=== PATIENT | female | born 1995 | race Two or more races ===

== ENCOUNTER 2020-08-03 13:19 | Emergency (ER) | payer OTHER ==
[2020-08-03 13:24] VITALS: BP 108/66
--- NOTE | 2020-08-03 13:50 | ER Document Report ---
ED Medical Screen (RME) - General Chief Complaint: Leg Pain Stated Complaint: RIGHT FOOT PAIN Time Seen by Provider: 08/03/20 13:35 Mode of Arrival: Ambulatory Information source: Patient - HPI Patient complains to provider of: Right leg pain, chest pain shortness of breath Notes: 08/03/20 13:48 Patient with complaints of right leg pain. She states her last 3 days been having some tightness and pain in the right calf and leg. She states that she was on control until about 2 months ago. She denies smoking. She does report recently driving from [place] within the last 3 weeks. She denies a personal history of blood clots, but states that her family has a history of blood clots. He also states that she been having some tightness in her chest some occasional chest pain occasional shortness of breath for the last 3 days. Exam: No distress, nontoxic appearing. Lungs clear and equal throughout. Heart sounds normal. Mild tenderness to palpation to the right calf with no obvious swelling or erythema. Normal pulse. Compartments soft. An initial examination was made on the patient as part of the triage process, and it was determined a more comprehensive evaluation was necessary. Initial orders were placed and patient was transferred to another provider in the ED who assumed care and finished evaluation and plan. - Related Data Allergies/Adverse Reactions: Penicillins Allergy (Verified 08/03/20 13:32) Past Medical History - Social History Chew tobacco use (# tins/day): No Frequency of alcohol use: Occasional Drug Abuse: None Physical Exam - Vital signs Vitals: Temp Pulse Resp BP Pulse Ox 98.2 F 83 18 108/66 99 08/03/20 13:23 08/03/20 13:23 08/03/20 13:23 08/03/20 13:23 08/03/20 13:23 Course - Vital Signs Vital signs: Temp Pulse Resp BP Pulse Ox 98.2 F 83 18 108/66 99 08/03/20 13:23 08/03/20 13:23 08/03/20 13:23 08/03/20 13:23 08/03/20 13:23
--- NOTE | 2020-08-03 14:26 | RADIOLOGY REPORT (SQ) ---
EXAM DESCRIPTION: CHEST 2 VIEWS IMAGES COMPLETED DATE/TIME: 08/03/2020 2:15 pm REASON FOR STUDY: CP, SOB COMPARISON: None. EXAM PARAMETERS: NUMBER OF VIEWS: two views TECHNIQUE: Digital Frontal and Lateral radiographic views of the chest acquired. RADIATION DOSE: NA LIMITATIONS: none FINDINGS: LUNGS AND PLEURA: No opacities, masses or pneumothorax. No pleural effusion. MEDIASTINUM AND HILAR STRUCTURES: No masses or contour abnormalities. HEART AND VASCULAR STRUCTURES: Heart normal size. No evidence for failure. BONES: No acute findings. HARDWARE: None in the chest. OTHER: No other significant finding. IMPRESSION: NO ACUTE RADIOGRAPHIC FINDING IN THE CHEST. TECHNICAL DOCUMENTATION: JOB ID: [id number] 2010 [employer]- All Rights Reserved Reading location - IP/workstation name: [email or web address]
[2020-08-03 14:40] LABS: ABSOLUTE LYMPHOCYTES (AUTO) 2.3 10^3/uL (0.5-4.7); ABSOLUTE MONOCYTES (AUTO) 0.5 10^3/uL (0.1-1.4); ABSOLUTE NEUT (AUTO) 4.7 10^3/uL (1.7-8.2); BASOPHILS % (AUTO) 0.5 % (0-2); EOSINOPHILS % (AUTO) 0.4 % (0-6); HEMATOCRIT 38.4 % (36.0-47.0); HEMOGLOBIN 13.7 g/dL (12.0-15.5); LYMPHOCYTES % (AUTO) 29.9 % (13-45); MEAN CORPUSCULAR HEMOGLOBIN 32.1 pg (27.0-33.4); MEAN CORPUSCULAR HGB CONC 35.7 g/dL (32.0-36.0); MEAN CORPUSCULAR VOLUME 90 fl (80-97); MONOCYTES % (AUTO) 6.8 % (3-13); PLATELET COUNT 225 10^3/uL (150-450); RED BLOOD COUNT 4.27 10^6/uL (3.72-5.28); SEGMENTED NEUTROPHILS % (AUTO) 62.4 % (42-78); TOTAL CELLS COUNTED % (AUTO) 100 %; WHITE BLOOD COUNT 7.6 10^3/uL (4.0-10.5)
[2020-08-03 14:49] LABS: ALBUMIN 4.5 g/dL (3.5-5.0); ALKALINE PHOSPHATASE 62 U/L (38-126); ANION GAP 9 (5-19); ASPARTATE AMINO TRANSFERASE 25 U/L (14-36); BILIRUBIN,DIRECT 0.2 mg/dL (0.0-0.4); BILIRUBIN,TOTAL 0.5 mg/dL (0.2-1.3); BLOOD UREA NITROGEN 12 mg/dL (7-20); CARBON DIOXIDE 25 mmol/L (22-30); CHLORIDE 104 mmol/L (98-107); GLUCOSE 100 mg/dL (75-110); POTASSIUM 3.9 mmol/L (3.6-5.0); TOTAL PROTEIN 7.5 g/dL (6.3-8.2)
--- NOTE | 2020-08-03 16:00 | ER Document Report ---
ED Extremity Problem, Lower - General Chief Complaint: Leg Pain Stated Complaint: RIGHT FOOT PAIN Time Seen by Provider: 08/03/20 13:35 Mode of Arrival: Ambulatory Information source: Patient - HPI Patient complains to provider of: Pain Notes: Patient here with complaints of some right lower leg pain. States this pain started Started 3 days ago. She reports having some tightness in her right calf and leg and now reports pain from her right buttocks all the way down her right leg. No swelling. She not currently on control but states she stopped taking control but 2 months ago. She denies smoking. She does report recently driving from [place] approximately 3 weeks ago. She denies any personal history of blood clots but has family members that have had blood clots in the past. She also states that she has had some intermittent chest tightness and occasional shortness of breath for the last 3 days. She denies any chest pa in or shortness of breath currently. She denies any abdominal pain. No nausea, vomiting, diarrhea. No fever. No redness. No rash. Pain in her leg is constant, mild to moderate, worse with walking, nothing in particular makes it better. She does complain of some mild low back pain as well. She denies any bowel or bladder dysfunction. She denies IV drug use. She denies dysuria or hematuria. No other complaints at this time. - Related Data Allergies/Adverse Reactions: Penicillins Allergy (Verified 08/03/20 13:32) Past Medical History - General Information source: Patient - Social History Smoking Status: Never Smoker Chew tobacco use (# tins/day): No Frequency of alcohol use: Occasional Drug Abuse: None Family History: Reviewed & Not Pertinent Review of Systems - Review of Systems -: Yes All other systems reviewed and negative Physical Exam - Vital signs Vitals: Temp Pulse Resp BP Pulse Ox 98.2 F 83 18 108/66 99 08/03/20 13:23 08/03/20 13:23 08/03/20 13:23 08/03/20 13:23 08/03/20 13:23 - Notes Notes: GENERAL: alert, cooperative, nontoxic, no distress. HEAD: normocephalic, atraumatic EYES: conjunctiva pink without discharge, no external redness or swelling. EARS: no external swelling, no external redness NOSE: atraumatic, no external swelling MOUTH/THROAT: mucous membranes moist and pink, posterior pharynx without erythema, swelling, exudate. No trismus or drooling. NECK: soft, supple, full range of motion, no meningismus. CHEST: no distress, lungs clear and equal throughout. No wheezing, rales, rhonchi. CARDIAC: regular rate and rhythm, no murmur, normal capillary refill, normal pulses. No peripheral edema noted. ABDOMEN: soft, nontender, no pusatile mass. BACK: No CVA tenderness. Nontender to palpation. Mild tenderness to the right sciatic notch. EXTREMITIES: full range of motion of all extremities. No redness, no swelling. NEURO: alert and oriented A&O x 3, no focal deficits, full range of motion of all extremities. 5 out of 5 flexion and extension of the lower extremities bilaterally. Patellar and Achilles deep tendon reflexes are +2 bilaterally. Normal sensation with no saddle anesthesia. Patient can dorsiflex the great toes bilaterally. PYSCH: appropriate mood, affect. Patient is cooperative. SKIN: pink, warm, dry, no rash. Course - Re-evaluation Re-evalutation: 08/03/20 16:00 Patient is nontoxic-appearing with stable vitals. Patient's resting comfortably at this time. I have gone over results with the patient. Patient here with complaints of some right leg pain. She was concerned she may have a blood clot in the leg since she recently drove from [place] and has a family history of blood clots so she wanted to be evaluated. DVT study is negative. Patient symptoms are consistent with some lumbar radicular pain. She has no swelling in the leg, no redness and no signs of infection. Neurovascular she is intact. She is also complained of some intermittent chest pain and shortness of breath. She denies any chest pain or shortness of breath currently. Heart score is 1. EKG is normal. Troponin is negative. Remainder of her labs are all unremarkable for any significant abnormalities. Chest x-ray is negative as well. Patient is PERC rule negative for pulmonary embolism and pulmonary embolism is very unlikely in this patient. Symptoms of her chest pain are also very atypical for ACS. With atypical symptoms and a negative work-up and a low heart score, I do believe the patient can follow-up as an outpatient at this time. Patient has no sign of cauda equina, epidural abscess/bleed, discitis, osteomyelitis, pyelonephritis, AAA. Patient would be discharged home with a prescription for NSAIDs for what is likely some radicular pain causing her leg pain and instructions to follow-up with primary care at the next available appointment regarding her other symptoms. Follow-up sooner for any worsening symptoms, high fever, persistent vomiting, or for any further concerns. The patient's emergency department workup and current diagnosis were explained to the patient and or family. Follow-up instructions were provided. Medications if prescribed were discussed. Instructions for when to return to the emergency department including specific worrisome symptoms were discussed with the patient and/or family. 08/03/20 16:02 - Vital Signs Vital signs: Temp Pulse Resp BP Pulse Ox 98.2 F 83 18 108/66 99 08/03/20 13:23 08/03/20 13:23 08/03/20 13:23 08/03/20 13:23 08/03/20 13:23 - Laboratory Results Result Diagrams: 08/03/20 14:07 08/03/20 14:07 Laboratory Results Interpreted: 08/03/20 14:07 Creatinine 0.41 L Critical Laboratory Results Reviewed: No Critical Results - Radiology Results Critical Radiology Results Reviewed: No Critical Results Discharge - Discharge Clinical Impression: Lumbar radiculopathy, acute Chest pain Qualifiers: Chest pain type: unspecified Qualified Code(s): R07.9 - Chest pain, unspecified Condition: Stable Disposition: HOME, SELF-CARE Instructions: Chest Pain of Unclear Cause ([facility]), Radiculopathy ([facility]) Additional Instructions: Take medication as prescribed. Drink plenty fluids. Follow-up with your doctor at the next available appointment regarding your chest pain. Follow-up sooner for worsening pain, high fever, persistent vomiting, difficulty controlling bowels or bladder, numbness, tingling, weakness, any further concerns. Prescriptions: Diclofenac Sodium [Voltaren 50 Mg Tablet.] 50 mg PO BID #20 tablet. Referrals: [facility] [Provider Group] - Follow up as needed
--- NOTE | 2020-08-03 16:37 | RADIOLOGY REPORT (SQ) ---
EXAM DESCRIPTION: VENOUS UNILATERAL LOWER IMAGES COMPLETED DATE/TIME: 08/03/2020 4:28 pm REASON FOR STUDY: right leg pain, recne tlong trip COMPARISON: None. TECHNIQUE: Dynamic and static mistry scale and color images acquired of the right leg venous system. S elected spectral images acquired with additional compression and augmentation maneuvers. The contrala teral common femoral vein and saphenofemoral junction were also imaged. Images stored on PACS. LIMITATIONS: None. FINDINGS: COMMON FEMORAL: Normal phasicity, compression and augmentation. No visualized echogenic ma terial on mistry scale. No defects on color images. FEMORAL: Normal compression and augmentation. No visualized echogenic material on mistry scale. No defe cts on color images. POPLITEAL: Normal compression, augmentation. No visualized echogenic material on mistry scale. No defec ts on color images. CALF VESSELS: Normal compression, augmentation. No visualized echogenic material on mistry scale. No de fects on color images. GSV and SSV: Normal compression, augmentation. No visualized echogenic material on mistry scale. No def ects on color images. ANY DEEP VENOUS INSUFFICIENCY: Not evaluated. ANY EVIDENCE OF POPLITEAL CYST: No. OTHER: No other significant finding. CONTRALATERAL COMMON FEMORAL VEIN AND SAPHENOFEMORAL JUNCTION: Normal phasicity, compression and augmentation. No visualized echogenic material on mistry scale. No de fects on color images. IMPRESSION: NO EVIDENCE OF DVT OR SVT IN THE RIGHT LEG. TECHNICAL DOCUMENTATION: JOB ID: [id number] 2010 [employer]- All Rights Reserved Reading location - IP/workstation name: [email or web address]
--- NOTE | 2020-08-04 20:41 | EKG REPORT ---
SEVERITY:- NORMAL ECG - SINUS RHYTHM : Confirmed by: Anamika Mas MD 04-Aug-2020 20:40:06
== END 2020-08-03 16:07 | disposition home or self-care (01) ==
LOC: ER 13:19
DX: M54.16 Radiculopathy, lumbar region (principal); M79.671 Pain in right foot; R07.9 Chest pain, unspecified; R06.02 Shortness of breath; Z88.0 Allergy status to penicillin
CPT/HCPCS: 36415; 71046; 80053; 84484; 84703; 85025; 93005; 93010; 93971; 99285